=== PATIENT | female | born 1990 | race Caucasian/White ===

== ENCOUNTER → 2018-03-17 | Outpatient (CLI) | payer OTHER ==
[~2018-03-17] MED LIST: AMOXICILLIN500 MG PO; BUSPAR; IBUPROFEN 30 M800 MG; LEXAPRO20 MG PO; LOPRESSOR50 MG PO; MACROBID100 M1 PO; PNV-SELECT1 TAB PO; PRENATABS RX1 TAB PO; PROTONIX40 MG PO; ULTRAM50 MG; [UNRECOGNIZED DRUG - OTHER] PO
== END | disposition home or self-care (01) ==
LOC: LAB 19:56
DX: O16.2 Unspecified maternal hypertension, second trimester (principal); Z3A.21 21 weeks gestation of pregnancy

== ENCOUNTER 2020-11-26 03:00 | Emergency (ER) | payer OTHER ==
[~2020-11-26] VITALS: Ht 165.1 cm; Wt 201.8 kg
== END 2020-11-26 05:12 | disposition short-term general hospital (02) ==
LOC: ED 03:00
DX: M72.6 Necrotizing fasciitis (principal)